=== PATIENT | female | born 1945 | race Caucasian/White ===

== ENCOUNTER 2022-05-17 06:55 | Day surgery (SDC) | payer MEDICARE ==
[~2022-05-17] VITALS: Ht 170.2 cm; Wt 86.2 kg
[~2022-05-17 06:55] MED LIST: LISINOP/HCTZ1 TA2 PO; LISINOPRIL10 MG PO; PRAVASTATIN SOD10 MG PO
[2022-05-17 12:30] VITALS: BP 163/81
== END 2022-05-17 10:32 | disposition home or self-care (01) ==
LOC: ENDO 06:55 → ORM 08:00 → ENDO 08:00
PROVIDERS: ATTEND Surgery
PROC: 0DBL8ZX Excision of Transverse Colon, Via Natural or Artificial Opening Endoscopic, Diagnostic (ICD-10-PCS; principal; 2022-05-17)
PROC: 0DBP8ZX Excision of Rectum, Via Natural or Artificial Opening Endoscopic, Diagnostic (ICD-10-PCS; 2022-05-17)
PROC: 3E0H8GC Introduction of Other Therapeutic Substance into Lower GI, Via Natural or Artificial Opening Endoscopic (ICD-10-PCS; 2022-05-17)
DX: Z12.11 Encounter for screening for malignant neoplasm of colon (principal); D12.3 Benign neoplasm of transverse colon; K62.1 Rectal polyp; K64.8 Other hemorrhoids; K57.30 Diverticulosis of large intestine without perforation or abscess without bleeding; Q43.9 Congenital malformation of intestine, unspecified; I10 Essential (primary) hypertension; Z86.010 Personal history of colon polyps